=== PATIENT | male | born 1965 | race Caucasian/White ===

== ENCOUNTER 2019-10-21 10:00 | Day surgery (SDC) | payer OTHER ==
[~2019-10-21] VITALS: Ht 180.3 cm; Wt 97.5 kg
[2019-10-21] MEDS ORDERED: CO Q-1010 MG PO (10:08)
[2019-10-21] MEDS ORDERED: MULTIVITAMINS1 EAC7 PO (10:08)
[2019-10-21] MEDS ORDERED: VITAMIN D325 MC2 PO (10:09)
[2019-10-21] MEDS ORDERED: PRAVACHOL40 MG PO (10:09)
[2019-10-21] MEDS ORDERED: FISH OIL 1,2001 EACH PO (10:09)
[2019-10-21] MEDS ORDERED: ADULT LOW DOSE81 MG PO (10:09)
--- NOTE | 2019-10-21 13:05 | NUR ---
10/21/19 1305 Narda Wallace 1301 PATIENT ARRIVES TO PACU RESTING WITH EYES CLOSED. ANSWERS QUESTIONS APPROPRIATELY. RESP EVEN AND UNLABORED, ROOM AIR SATS >92%.
--- NOTE | 2019-10-22 11:46 | OR ---
[facility] [address] [place], [place] [address] Signed DATE OF OPERATION: 10/21/2019 SURGEON: Sparkle Miguel MD PREOPERATIVE DIAGNOSIS: Colon screening. POSTOPERATIVE DIAGNOSIS: Small polyp at 20 cm. PROCEDURE: Total colonoscopy to cecum with cold snare polypectomy x1. ANESTHESIA: Intravenous sedation, fentanyl 100 mcg, Versed 6 mg. INDICATION: This 53-year-old white man is a patient of ALAN Mckeon. He is here for screening colonoscopy. He has no symptoms of bleeding, diarrhea or constipation and no family history of colon cancer. He does have noninsulin dependent diabetes mellitus, which is managed by a very low carb diet. He understands the risks of bleeding, infection, and perforation related to colonoscopy and wished to proceed. FINDINGS: The prep was excellent except the cecum where there was some residual stool requiring irrigation. The colon was well prepped overall, however. There was a small polyp at 20 cm was excised with cold snare technique and additional cold morcellation polypectomy technique. There were no other findings of concern. DESCRIPTION OF PROCEDURE: The patient was brought to the endoscopy suite and placed in lateral decubitus position, given intravenous sedation to the point of slurred speech and nystagmus. Digital rectal examination was normal. An Olympus video colonoscope was passed in the rectum and manipulated throughout the colon noting a small polyp at 20 cm. The scope was passed beyond this ultimately to the cecum. There was some residual semi solid stool in the cecum which required irrigation. Visualization was good otherwise. The scope was withdrawn from that point and examination throughout showed no sign of abnormality until 20 cm from the anal verge where the polyp was once again identified. This was better position for excision. A Electronically Signed By: SPARKLE MIGUEL MD 10/22/19 1146 PATIENT NAME: NICO SIMON OPERATIVE REPORT DATE OF : 67 REPORT #: [id number] PHYSICIAN: SPARKLE MIGUEL MD PCP: ARLIN TOLBERT REPORT IS CONFIDENTIAL AND NOT TO BE RELEASED WITHOUT AUTHORIZATION [facility] [address] [place], [place] [address] Signed cold snare polypectomy technique was used to excise it completely. Additional polypectomy bites were taken with the forceps. Complete extirpation of the polyp was noted. The scope was then withdrawn. Retroflexed view undertaken showing no sign of abnormality otherwise. The scope was removed. The patient was taken to the recovery room in good condition. CONCLUDING DIAGNOSIS: Small polyp at 20 cm. PLAN: Recommend repeat colonoscopy in 5 years, sooner if clinically indicated. He will return to the ongoing care of ALAN Mckeon. MD ELMER Damico/TIERAL /[id number] cc: ALAN Mckeon Copies: ARLIN TOLBERT ~ Electronically Signed By: SPARKLE MIGUEL MD 10/22/19 1146 PATIENT NAME: NICO SIMON OPERATIVE REPORT DATE OF : 67 REPORT #: [id number] PHYSICIAN: SPARKLE MIGUEL MD PCP: ARLIN TOLBERT REPORT IS CONFIDENTIAL AND NOT TO BE RELEASED WITHOUT AUTHORIZATION
--- NOTE | 2019-10-22 15:25 | PATH ---
[facility] [address] [place], [place] [address] Signed SPECIMEN(S): A COLON POLYP AT 20 CM SPECIMEN SOURCE: A. COLON POLYP AT 20 CM CLINICAL HISTORY: Colonoscopy. Polyp in colon x 1. MICROSCOPIC DESCRIPTION: Histologic sections of all submitted blocks are examined by light microscopy. These findings, together with the gross examination, support the pathologic diagnosis. FINAL PATHOLOGIC DIAGNOSIS: Colon, polyp at 20 cm, polypectomy: - Polypoid colonic mucosa with no histopathologic abnormality. - Negative for dysplasia or malignancy. NAL:cml:C2NR GROSS DESCRIPTION: The specimen, labeled "JM, colon polyp at 20 cm," is received in formalin and consists of one rosales soft tissue fragment that measures 0.2 cm in greatest dimension. The specimen is entirely submitted in cassette (A1). JS (under the direct supervision of a pathologist) The Gross Description was prepared using a voice recognition system. The report was reviewed for accuracy; however, sound-alike word errors, addition and/or deletions may occur. If there is any question about this report, please contact Client Services. PERFORMING LABORATORY: The technical component was performed by [employer], [address] [place] [id number] (Head Of Data: Shaina Mejias MD; CLIA# [id number]). [facility] [address] [address] (CLIA# [id number]). Diagnostician: Rhina Vasquez MD Pathologist Electronically Signed 10/22/2019 PATIENT NAME: NICO SIMON PATHOLOGY DATE OF : 67 REPORT #: [id number] PHYSICIAN: BREANNE BRADFORD PCP: ARLIN TOLBERT REPORT IS CONFIDENTIAL AND NOT TO BE RELEASED WITHOUT AUTHORIZATION [address] [address] Signed Copies: ~ PATIENT NAME: NICO SIMON PATHOLOGY DATE OF : 67 REPORT #: [id number] PHYSICIAN: BREANNE PATHOLOGY PCP: ARLIN TOLBERT REPORT IS CONFIDENTIAL AND NOT TO BE RELEASED WITHOUT AUTHORIZATION
== END 2019-10-21 13:45 | disposition home or self-care (01) ==
LOC: OPS 10:00 → DS 10:00 → OPS 11:00
PROVIDERS: Surgery
PROC: 0DBE8ZZ Excision of Large Intestine, Via Natural or Artificial Opening Endoscopic (ICD-10-PCS; principal; 2019-10-21 11:00)
DX: Z12.11 Encounter for screening for malignant neoplasm of colon (principal); K63.5 Polyp of colon; I10 Essential (primary) hypertension; E11.9 Type 2 diabetes mellitus without complications; E78.5 Hyperlipidemia, unspecified; Z79.899 Other long term (current) drug therapy
CPT/HCPCS: 99153; G0500; J2250; J3010; J7121

== ENCOUNTER 2021-01-05 15:48 | Inpatient (IN) | payer OTHER ==
[~2021-01-05] VITALS: Ht 180.3 cm; Wt 93.2 kg
[~2021-01-05 15:48] MED LIST: ADULT LOW DOSE81 MG PO; CENTRAVITES 501 EACH PO; CO Q-1010 MG PO; FISH OIL 1,2001 EACH PO; PRAVACHOL40 MG PO; VITAMIN D325 MC2 PO
[2021-01-05] MEDS ORDERED: AMOX TR-K CLV1 EAC1 PO (16:20)
[2021-01-05] MEDS ORDERED: ATORVASTATIN CA80 MG PO (16:20)
[2021-01-05] MEDS ORDERED: LISINOPRIL40 MG PO (16:21)
--- NOTE | 2021-01-05 19:34 | NUR ---
PT ADMITED TO ROOM 108, FROM ED. A/O.
--- NOTE | 2021-01-05 19:46 | NUR ---
BLOOD SUGAR PRIOR TO MEAL, 130
--- NOTE | 2021-01-05 19:47 | NUR ---
1921 - arrived from ed via w/c.
--- NOTE | 2021-01-05 20:24 | NUR ---
ALERT AND ORIENTED, ON ROOM AIR, CLEAR LUNGS, EDEMA TO R FOOT AND LJ, EDGES MARKED. COOPERATIVE
--- NOTE | 2021-01-05 23:48 | NUR ---
AWAKES EASILY, NO C/O PAIN. R FOOT EDEMA, DECREASED, MARKED EARLIER, DISTAL BOTTOM OF FOOT OPEN AREA, WHITE SKIN, SCANT AMOUNTS OF SEROUS DRAINAGE. NO ODOR. PT COOPERATIVE
--- NOTE | 2021-01-06 02:21 | NUR ---
R leg elevated in pillows, decereaesd redness to calf area, decreaed edema to top of foot, but still hot to touch and red. elevated w pillows, no c/o adverse reaction to IV abx/ ivf infusing w/o problems. tolerating fluids well, no emesis, has voided QS
--- NOTE | 2021-01-06 04:13 | NUR ---
Pt admitted per cellulitis of R calve/foot, laceration of R distal plantar area. improved, less red and decreased edema noted. areas marked. On room air, lungs clear, abd soft. IVF infusing w/o problems, no c/o adverse reactin to IV abx infusion. tolerating liquids well, no emesis, has voided QS medium yellow urine using urinal and up to br, had a bm this shift. No c/o pain. uses call light, repositions self in bed. R leg elevated with pillows, no discharge noted from plantar laceration area.
--- NOTE | 2021-01-06 06:50 | NUR ---
RESTING, NO C/OPAIN, ON ROOM AIR, IVF INFUSING, R LEG ELEVATED IN PILLOWS, DECREAED REDNESS AND EDEMA. FLUIDS AND CALL LIGHT AT BEDSIDE
--- NOTE | 2021-01-06 07:40 | NUR ---
Pt lives in a 2 story home with his and two daughters. He uses the main floor only. 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 Pt would like to dc today and encouraged to wait as he is in need of IV antibiotics. Pt states understanding. Plans on dc to home when cleared medically. will transport. Denies other needs.
--- NOTE | 2021-01-06 08:30 | NUR ---
REPORT RECEIVED FROM NIGHT RN AND PT. CARE RESUMED. PT IS ALERT AND ORIENTED. HE DENIES PAIN OR NAUSEA. RT. FOOT REDNESS WITHIN OUTLINE AND +1 EDEMA PRESENT. NO DRAINAGE FROM PLANTAR WOUND. LUNGS CLEAR THROUGHOUT. IV SITE WNL AND FLUSHES WELL. DISCUSSED SAFETY, SHOWERING AND POC. PT LEFT RESTING WITH CALL LIGHT IN REACH.
--- NOTE | 2021-01-06 09:09 | NUR ---
MED REC COMPLETE
--- NOTE | 2021-01-06 12:00 | NUR ---
ROUNDING ON PT. HE DENIES PAIN AT THIS TIME. VITALS STABLE. HE ATE 100% OF HIS LUNCH. RIGHT FOOT REDNESS WITHIN OUTLINE AND UNCHANGED. PT. LEFT RESTING WITH CALL LIGHT IN REACH.
--- NOTE | 2021-01-06 12:08 | NUR ---
PT ALERT, ORIENTED AND FEELING BETTER. PT SHOWED ME OUTLINE OF REDNESS-HAS REDUCED WELL. HAD GOOD DISCUSSION, GAVE BLESSING AND ENCOURAGEMENT. WILL FOLLOW NEEDED
--- NOTE | 2021-01-06 12:26 | NUR ---
DR KAUFFMAN CALLED FOR CONSULT. HE WILL BE TO TO SEE PT THIS AFTERNOON.
--- NOTE | 2021-01-06 14:00 | NUR ---
PT. HAD A SHOWER. A SMALL AMOUNT OF SERISANGUINOUS DRAINAGE FROM RIGHT FOOT PLANTAR WOUND PRESENT. PT. DENIES PAIN. LEFT RESTING WITH CALL LIGHT IN REACH.
--- NOTE | 2021-01-06 19:50 | NUR ---
in to get vitals, iv alarming, rn informed, no further neds at this tome
--- NOTE | 2021-01-06 21:35 | NUR ---
RECEIVED REPORT ON PT FROM RADHA BELTRAN. PT IS RESTING WITH EYES CLOSED AT THIS TIME, CALL LIGHT IS CLOSE AND IV IS INFUSING FINE.
--- NOTE | 2021-01-06 22:45 | NUR ---
IN ROOM TO ASSESS PT AND ADMINISTER IV ABX. PT DENIES NEED FOR MELATONIN OR PAIN MEDICATION AT THIS TIME. PT REPORTS IMPROVEMENT IN R FOOT SWELLING/REDNESS. R FOOT IS ELEVATED ON PILLOW. REDNESS IS WITHIN OUTLINED AREAS AND ALLYVN ON DISTAL PLATAR FOOT IS CDI WITH A SMALL SPOT OF SHADOWING NOTED. PT REPORTS BILAT LE NEUROPATHY BUT DENIES PAIN. WARM BLANKET PROVIDED AND PT DENIES FURTHER NEEDS. CALL LIGHT IS CLOSE.
--- NOTE | 2021-01-07 00:15 | NUR ---
PT'S IV WAS BEEPING, IT IS NOW INFUSING FINE. EMPTIED URINAL AND PROVIDED FRESH ICEWATER. PT DENIES FURTHER NEEDS. CALL LIGHT IS CLOSE.
--- NOTE | 2021-01-07 01:51 | NUR ---
PT'S IV PUMP BEEPING, IT IS NOW INFUSING FINE. PT DENIES NEEDS AND CALL LIGHT IS CLOSE.
--- NOTE | 2021-01-07 02:43 | NUR ---
IV PUMP WAS BEEPING, IT IS NOW INFUSING FINE. URINAL EMPTIED. PT'S R FOOT IS ELEVATED ON PILLOW AND REDDNESS/SWELLING IS IMPROVING. PT DENIES PAIN. CALL LIGHT IS CLOSE AND PT DENIES NEEDS.
--- NOTE | 2021-01-07 04:50 | NUR ---
PT IS RESTING WITH EYES CLOSED, RR IS EVEN AND NONLABORED. CALL LIGHT IS CLOSE AND IV IS INFUSING FINE.
--- NOTE | 2021-01-07 06:56 | NUR ---
IN ROOM TO ADMINISTER IV ABX. DRESSING ON BOTTOM OF R FOOT HAS LARGER AMOUNT OF DRAINAGE THIS AM THAT APPEARS SEROUS. PT DENIES PAIN AND DENIES FURTHER NEEDS AT THIS TIME. CALL LIGHT IS CLOSE.
--- NOTE | 2021-01-07 09:00 | NUR ---
REPORT RECEIVED FROM NIGHT RN AND PT. CARE RESUMED. PT. IS ALERT, ORIENTED. HE DENIES PAIN AT THIS TIME. RT. FOOT WAS REDRESSED BY DR. KAUFFMAN THIS MORNING. ALLEVYN IS CDI AND REDNESS IS IMPROVED AND WITHIN OUTLINE. EDEMA IS TRACE IN RLE. IV ABX INFUSING. DISCUSSED DISCHARGE AND MEDS. LEFT RESTING WITH CALL LIGHT IN REACH.
--- NOTE | 2021-01-07 09:45 | NUR ---
Spoke with Jorden. He saw Dr. Gómez this am and states he will go home today. Denies any needs, will transport him.
--- NOTE | 2021-01-07 11:47 | NUR ---
ALL DISCHARGE INSTRUCTIONS REVIEWED AND QUESTIONS ANSWERED. PT. LEFT WITHG ALL BELONGINGS VIA WHEELCHAIR WITH REWORK OPERATOR.
== END 2021-01-07 11:50 | disposition home or self-care (01) | DRG 623 ==
LOC: ED 15:48 → MS 18:47
PROVIDERS: ADMIT Internal Medicine; ATTEND Internal Medicine
PROC: 0JBQ0ZZ Excision of Right Foot Subcutaneous Tissue and Fascia, Open Approach (ICD-10-PCS; principal; 2021-01-06)
DX: E11.628 Type 2 diabetes mellitus with other skin complications (principal); L03.115 Cellulitis of right lower limb; E11.40 Type 2 diabetes mellitus with diabetic neuropathy, unspecified; E78.5 Hyperlipidemia, unspecified; I10 Essential (primary) hypertension; E78.00 Pure hypercholesterolemia, unspecified; Z98.890 Other specified postprocedural states; Z79.899 Other long term (current) drug therapy; Z79.82 Long term (current) use of aspirin
CPT/HCPCS: 80048; 80053; 81001; 83605; 83735; 85025; 87040; 96365; 99284-25; C9803; J0692; J7030; U0003

== ENCOUNTER 2022-12-03 09:02 | Inpatient (IN) | payer OTHER ==
[~2022-12-03] VITALS: Ht 180.3 cm; Wt 94.3 kg
[~2022-12-03 09:02] MED LIST changes: +AMOX TR-K CLV1 EAC1 PO; +ATORVASTATIN CA80 MG PO; +ZESTRIL20 MG PO
[2022-12-03 10:22] LABS: BASOPHILS 0.5 % (0-2); EOSINOPHILS 0.3 % (0-6); HEMOGLOBIN 14.7 g/dL (12.0-18.0); LYMPHOCYTES 10.5 % (24-44); MCH 28.9 (27-36); MCHC 33.5 g/dl (30-36); MCV 86.2 fl (81-99); MONOCYTES 10.8 % (0-12); NEUTROPHILS 77.9 % (39-80); PLATELET COUNT 189 K/uL (140-440); RBC 5.11 M/ul (4.3-5.7); RDW 13.1 (10.5-15.0)
[2022-12-03 10:54] LABS: ALBUMIN 3.4 g/dL (3.4-5.0); ALBUMIN/GLOBULIN RATIO 0.85 (1.1-2.4); ANION GAP 12.6 (7-21); BILIRUBIN, TOTAL 1.4 ng/dL (0.2-1.0); BUN/CREATININE RATIO 11.76 (6.0-28.6); CALCIUM 9.6 mg/dL (8.5-10.1); CREATININE, SERUM 1.36 mg/dL (0.70-1.30); POTASSIUM 4.6 mmol/L (3.5-5.1); PROTEIN, TOTAL 7.4 g/dL (6.4-8.2)
[2022-12-03 12:31] LABS: ERYTHROCYTE SEDIMENTATION RATE 33
--- NOTE | 2022-12-03 13:43 | NUR ---
PT ADMITTED TO ROOM 1115 VIA WHEELCHAIR. AMBULATES SAFELY AND INDEPENDENTLY FROM WC TO BED. VSS. DISCUSSED PLAN OF CARE AND MEDICATIONS. PT ORIENTED TO ROOM AND CALL LIGHT, VERBALIZED UNDERSTANDING. PT LEFT GREAT TOE REDNESS OUTLINED. PT DENIES FEELING PAIN IN LOWER EXTREMITIES. IV PATENT. PT DENIES NEEDS AT THIS TIME, CALL LIGHT IN REACH.
[2022-12-03 13:53] VITALS: BP 113/69
--- NOTE | 2022-12-03 15:41 | NUR ---
MED REC COMPLETE
[2022-12-03 18:29] VITALS: BP 119/68
--- NOTE | 2022-12-03 19:40 | NUR ---
REPORT RECEIVED FROM DAY SHIFT RN. PT LYING IN BED ALERT AND ORIENTED. DENIES NEEDS. WHITE BOARD UPDATED. CALL LIGHT IN REACH.
[2022-12-03 20:21] VITALS: BP 122/72
--- NOTE | 2022-12-03 20:58 | NUR ---
EVENING ASSESSMENT COMPLETE. SCHEDULED MEDS ADMIN PER EMAR. PT REPORTS HEADACHE PAIN AND TEMP 99.8. NIO TYLENOL ADMIN. VS AND I&O OBTAINED. IV ABX INFUSING PER ORDER. LEFT GREAT TOE WITH ULCER PRESENT. NO DRAINAGE. REDNESS REMAINS WITHIN OUTLINE. PT DENIES QUESTIONS OR CONCERNS. CALL LIGTH IN REACH.
--- NOTE | 2022-12-03 23:25 | NUR ---
PT RESTING IN BED WITH EYES CLOSED. RESPIRATIONS EVEN. CALL LIGHT IN REACH.
[2022-12-04 01:52] VITALS: BP 121/78
--- NOTE | 2022-12-04 02:08 | NUR ---
PT RESTING WITH EYES CLOSED. AWAKENS EASILY. VS AND I&O OBTAINED. ASSESSMENT UNCHANGED. PT DENIES PAIN. IV ABX INFUSING PER ORDER. PT DENIES NEEDS. CALL LIGHT IN REACH.
[2022-12-04 05:17] VITALS: BP 127/79
--- NOTE | 2022-12-04 05:22 | NUR ---
LAB IN ROOM FOR MORNING DRAW. VS AND I&O OBTAINED. IV ABX COMPLETE. PT DENIES NEEDS. CALL LIGHT IN REACH.
[2022-12-04 05:23] LABS: BASOPHILS 0.3 % (0-2); EOSINOPHILS 1.5 % (0-6); HEMATOCRIT 39.8 % (35.0-50.0); HEMOGLOBIN 13.4 g/dL (12.0-18.0); LYMPHOCYTES 22.1 % (24-44); MCH 28.5 (27-36); MCHC 33.7 g/dl (30-36); MCV 84.5 fl (81-99); MONOCYTES 11.3 % (0-12); NEUTROPHILS 64.8 % (39-80); PLATELET COUNT 183 K/uL (140-440); RBC 4.71 M/ul (4.3-5.7)
[2022-12-04 05:34] LABS: BUN/CREATININE RATIO 12.9 (6.0-28.6); CALCIUM 8.8 mg/dL (8.5-10.1); CREATININE, SERUM 0.93 mg/dL (0.70-1.30)
--- NOTE | 2022-12-04 06:10 | NUR ---
PT OFF FLOOR FOR MRI.
--- NOTE | 2022-12-04 06:59 | NUR ---
PT BACK FROM MRI. IVF RESUMED. NO NEEDS AT THIS TIME.
[2022-12-04 09:45] VITALS: BP 123/74
--- NOTE | 2022-12-04 09:47 | NUR ---
RECEIVED PT REPORT FROM DEVIN GRAFF AT APPROXIMATELY 0715 HOURS.
--- NOTE | 2022-12-04 10:38 | NUR ---
CALL TO DR. KAUFFMAN'S OFFICE FOR CONSULTATION ON PATIENT. FACE SHEET FAXED TO OFFICE.
--- NOTE | 2022-12-04 10:38 | NUR ---
DR. CHOPRA IN WITH PT TO DISCUSS RESULTS OF MRI (1023 HOURS).
--- NOTE | 2022-12-04 10:47 | NUR ---
IN TO VISIT PATIENT, PATIENT AWAKE WATCHING MOVIE ON HIS PHONE. PATIENT STATES HE LIVES AT HOME WITH HIS . HE DOES LIVE IN A 2 STORY, BUT HE CURRENTLY LIVES IN THE LOWER LEVEL. PATIENT DAUGHTERS ALSO LIVE IN THE HOME AND WILL BE ABLE TO ASSIST AT DISCHARGE. PATIENT DOES NOT REQUIRE ANY DME. 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 DEMOGRAPHIC INFORMATION VERIFIED. PATIENT STATES HE HAS NO FINANCIAL NEEDS, BUT IS CONCERNED THAT HE WILL HAVE A LARGE HOSPITAL BILL. ADVISED WE COULD REQUEST A VISIT FROM MICHELLE IN PATIENT ACCOUNTS TO SEE IF HE WOULD QUALIFY FOR SECONDARY COVERAGE. PATIENT WOULD LIKE TO HOLD OFF ON THIS FOR NOW HE IS UNSURE WHAT HIS MEDICAL NEEDS WILL BE AT THIS TIME. PATIENT STATES PODIATRY IS TO SEE HIM IN THE AM. ADVISED THAT CASE MANAGEMENT WILL RETURN TO CHECK WITH HIM DURING HIS STAY.
--- NOTE | 2022-12-04 11:51 | NUR ---
EXERCISED MINISTRY OF PRESENCE PT TALKED OF DIAGNOSIS AND PLAN HE UNDERSTANDS IT. CONSENTED TO PRAYER. PRAYED FOR CLARITY OF DECISIONS AND EVANGELICAL OF HEALTH.
--- NOTE | 2022-12-04 12:21 | NUR ---
PT UP IN CHAIR, RESPONDING TO CALL LIGHT FOR IV PUMP BEEPING. NS FLUSH COMPLETE. PLUM SET CHANGED BACK TO LR AND RATE CONTINUED AT 125ML/HR PER ORDERS. PT DENIES ANY NEEDS AT THIS TIME.
[2022-12-04 14:16] VITALS: BP 113/67
--- NOTE | 2022-12-04 16:37 | NUR ---
IN FOR HOURLY ROUND AND TO ANSWER CALL LIGHT. PT STATES HE DOESN'T THINK HIS IV IS RUNNING PROPERLY BECAUSE THERE ARE BUBBLES THAT HAVE STOPPED MOVING. IV PUMP RUNNING ZOSYN WITHOUT ALARMING, PUMP PLACED IN STANDBY AND IV FLUSHED WITH 10ML NS WITHOUT RESISTANCE AND WITH GOOD RETURN. ADVISED PT THAT THE IV PUMP WILL ALARM IF IT IS RUNNING AND FLUID IS NOT ENTERING THE IV CATHETER, AND ALSO REINFORCED EDUCATION ON THINGS TO USE THE CALL LIGHT FOR IN REGARDS TO IV INFILTRATION, IV LEAKING, EXTRAVASATION, REDNESS, SIGNS OF INFECTION, ETC. PT VERBALIZED UNDERSTANDING. CALL LIGHT IN REACH. DENIES FURTHER NEEDS AT THIS TIME.
--- NOTE | 2022-12-04 18:07 | NUR ---
PT'S INDUSTRIAL ILLUMINATING ENGINEER, DR. KAUFFMAN IN WITH PT.
--- NOTE | 2022-12-04 18:14 | NUR ---
DR BRICE IN TO CONSULT ON PT. PLANS GOING FORWARD DISCUSSED ALL QUESTIONS ANSWERED
--- NOTE | 2022-12-04 18:29 | NUR ---
PT HAS BEEN UP IN CHAIR FOR MOST OF THE DAY. FAMILY HAS VISITED A COUPLE OF TIMES. PT HAS NO C/O PAIN HE HAS NEUROPATHY IN HIS FEET. ORAL INTAKE HAS BEEN ADEQUATE, VOIDING QUANTITY SUFFICIENT, AMBULATES TO BATHROOM AND UP TO CHAIR UNASSISTED. USES CALL LIGHT APPROPRIATELY. DR. KAUFFMAN CONSULTED WITH PT FOR POSSIBLE AMPUTATION OR CONTINUING ABX AT HOME VS. IV IN THE HOSPITAL. PT IV SITE PATENT, GOOD RETURN, LR RUNNING AT 125ML/HR PER EMAR ORDERS. PT USES CALL LIGHT APPROPRIATELY. PLEASANT AFFECT.
--- NOTE | 2022-12-04 18:41 | NUR ---
DR. KAUFFMAN APPLIED IODOSORB, BANDAGE, AND GAUZE TO LEFT GREAT TOE AFTER REMOVING TISSUE, SECURED WITH KERLEX AND COBAN.
[2022-12-04 18:51] VITALS: BP 148/90
--- NOTE | 2022-12-04 19:44 | NUR ---
REPORT RECEIVED FROM DAY SHIFT RN. PT UP TO SHOWER INDEPENDENTLY. DRESSING ON LEFT FOOT WET AFTER SHOWER. DR. KAUFFMAN UPDATED. TELEPHONE ORDERS RECEIVED TO REPLACE DRESSING. WHITE BOARD UPDATED. CALL LIGHT IN REACH.
[2022-12-04 20:04] VITALS: BP 111/95
--- NOTE | 2022-12-04 20:45 | NUR ---
EVENING ASSESSMENT COMPLETE. SCHEDULED MEDS ADMIN PER EMAR. PT DENIES PAIN OR NAUSEA. DRESSING TO LEFT FOOT CHANGED PER ORDER. LLE ELEVATED ON PILLOW. IV ABX INFUSING PER ORDER. PT DENIES QUESTIONS OR CONCERNS. CALL LIGHT IN REACH.
--- NOTE | 2022-12-04 23:34 | NUR ---
PT RESTING IN BED WITH EYES CLOSED. RESPIRATIONS EVEN. CALL LIGHT IN REACH.
--- NOTE | 2022-12-04 23:50 | NUR ---
IV PUMP ALARMING. ISSUE RESOLVED. PT UP TO BR TO VOID 600 ML CLEAR YELLOW URINE. BACK TO BED, ELIOT WELL. DENIES NEEDS.
--- NOTE | 2022-12-05 02:04 | NUR ---
IV ABX INFUSING WNL. ASSESSMENT UNCHANGED. PT DENIES PAIN OR NAUSEA. NO NEEDS AT THIS TIME.
--- NOTE | 2022-12-05 04:01 | NUR ---
PT RESTING IN BED WITH EYES CLOSED. RESPIRATIONS EVEN. CALL LIGHT IN REACH.
[2022-12-05 05:10] VITALS: BP 139/86
--- NOTE | 2022-12-05 05:46 | NUR ---
IV PUMP ALARMING. ISSUE RESOLVED. VS AND I&O OBTAINED. PT DENIES PAIN. LLE DRESSING CDI. LLE ELEVATED ON PILLOW. PT DENIES NEEDS. CALL LIGHT IN REACH.
--- NOTE | 2022-12-05 07:44 | NUR ---
PT REPORT RECEIVED FROM DEVIN GRAFF AT 0715 HOURS. CURRENTLY, PT UP IN CHAIR IN ROOM, DR. KAUFFMAN AT BEDSIDE FOR DRESSING CHANGE AFTER REVIEWING PT XRAY IMAGES. PT REPORTS NAUSEA, DIZZINESS AND NIGHT SWEATS. LR RUNNING AT 125ML/HR
[2022-12-05 09:41] VITALS: BP 128/75
[2022-12-05] MEDS ORDERED: CIPROFLOXACIN500 MG PO (10:38)
[2022-12-05] MEDS ORDERED: DOXYCYCLINE HY100 MG PO (10:39)
== END 2022-12-05 11:58 | disposition home or self-care (01) | DRG 603 ==
LOC: ED 09:02 → MS 12:47
PROVIDERS: Student in an Organized Health Care Education/Training Program; ADMIT Internal Medicine; ATTEND Family Medicine
DX: L03.032 Cellulitis of left toe (principal); M86.172 Other acute osteomyelitis, left ankle and foot; E78.00 Pure hypercholesterolemia, unspecified; E11.65 Type 2 diabetes mellitus with hyperglycemia; E11.69 Type 2 diabetes mellitus with other specified complication; I10 Essential (primary) hypertension; R79.82 Elevated C-reactive protein (CRP); E11.40 Type 2 diabetes mellitus with diabetic neuropathy, unspecified; Z98.890 Other specified postprocedural states; Z79.82 Long term (current) use of aspirin; Z79.899 Other long term (current) drug therapy
CPT/HCPCS: 36415; 73660; 73723; 80048; 80053; 83605; 85025; 85651; 86140; A9270; A9577; J0690; J0878; J1815; J2543; J7030; J7121

== ENCOUNTER 2023-01-01 03:26 | Emergency (ER) | payer OTHER ==
[~2023-01-01] VITALS: Ht 180.3 cm; Wt 95.2 kg
[~2023-01-01 03:26] MED LIST changes: +CIPROFLOXACIN500 MG PO; +DOXYCYCLINE HY100 MG PO
--- OUTSIDE RECORDS SUMMARY | 2023-01-01 03:34 | XMS ---
PreManage Notification: NICO SIMON Security Pediatric Pathologist Events No recent Security Events currently on file CRITERIA MET - [facility] - 2 Visits in 30 Days CARE PROVIDERS There are no care providers on record at this time. Renuka has no Care Guidelines for this patient. [facility] NOTE: Visits indicate total known visits. 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
[2023-01-01 03:53] LABS: BASOPHILS 0.5 % (0-2); EOSINOPHILS 0.6 % (0-6); HEMATOCRIT 44.1 % (35.0-50.0); HEMOGLOBIN 14.6 g/dL (12.0-18.0); LYMPHOCYTES 16.1 % (24-44); MCH 27.8 (27-36); MCHC 33.1 g/dl (30-36); MONOCYTES 10.7 % (0-12); NEUTROPHILS 72.1 % (39-80); PLATELET COUNT 189 K/uL (140-440); RBC 5.25 M/ul (4.3-5.7); RDW 13.7 (10.5-15.0)
[2023-01-01 03:57] LABS: INR 1.01 (0.80-1.30); PROTIME 12.9 Sec (11.2-14.2)
[2023-01-01 04:05] LABS: ALBUMIN 3.7 g/dL (3.4-5.0); ALBUMIN/GLOBULIN RATIO 0.95 (1.1-2.4); ANION GAP 18.3 (7-21); BILIRUBIN, TOTAL 1.7 ng/dL (0.2-1.0); BUN/CREATININE RATIO 18.69 (6.0-28.6); CREATININE, SERUM 1.07 mg/dL (0.70-1.30); MAGNESIUM 1.6 mg/dL (1.8-2.4); POTASSIUM 4.3 mmol/L (3.5-5.1); PROTEIN, TOTAL 7.6 g/dL (6.4-8.2)
[2023-01-01 04:31] LABS: INFLUENZA B NAA NEGATIVE (NEGATIVE); RESPIRATORY SYNCYTIAL VIR NAA NEGATIVE (NEGATIVE)
[2023-01-01] MEDS ORDERED: CYCLOBENZAPRINE10 MG PO (04:56)
[2023-01-01 05:07] VITALS: BP 116/72
--- NOTE | 2023-01-01 17:40 | EKG ---
[facility] [address] [facility] [place] [address] Signed Normal sinus rhythm Minimal voltage criteria for LVH, may be normal variant ( R in aVL ) Borderline ECG No previous ECGs available Confirmed by BRITTNEY BARDALES MD ([id number]) on 01/01/2023 5:39:54 PM Electronically Signed By: BRITTNEY BARDALES 01/01/23 1740 PATIENT NAME: ALFREDNICO Electrocardiogram DATE OF : 67 PHYSICIAN: BRITTNEY BARDALES REPORT #: [id number] REPORT IS CONFIDENTIAL AND NOT TO BE RELEASED WITHOUT AUTHORIZATION
== END 2023-01-01 05:00 | disposition home or self-care (01) ==
LOC: ED 03:26
PROVIDERS: Family Medicine
DX: R07.89 Other chest pain (principal); E11.65 Type 2 diabetes mellitus with hyperglycemia; I10 Essential (primary) hypertension; E78.00 Pure hypercholesterolemia, unspecified; Z79.82 Long term (current) use of aspirin
CPT/HCPCS: 36415; 71045; 80053; 83735; 84484; 85025; 85610; 87502; 93005; 93010; C9803; U0002

== ENCOUNTER 2023-01-03 17:35 | Emergency (ER) | payer OTHER ==
[~2023-01-03] VITALS: Ht 180.3 cm; Wt 95.2 kg
[~2023-01-03 17:35] MED LIST changes: +CYCLOBENZAPRINE10 MG PO
--- OUTSIDE RECORDS SUMMARY | 2023-01-03 17:43 | XMS ---
PreManage Notification: NICO SIMON Security Cosmetology Instructor Events No recent Security Events currently on file CRITERIA MET - [facility] - 2 Visits in 30 Days CARE PROVIDERS There are no care providers on record at this time. Renuka has no Care Guidelines for this patient. Stephanie VISIT COUNT (12 MO.) 3 [facility] [place] [facility]. TOTAL 3 NOTE: Visits indicate total known visits. ED/C VISIT TRACKING (12 MO.) 01/03/2023 17:[address] [facility] [place] TYPE: Emergency COMPLAINT: - CHEST PAIN 01/01/2023 03:26 [facility] [place] TYPE: Emergency COMPLAINT: - COLD SYMPTOMS DIAGNOSES: - Essential (primary) hypertension - custodial (current) use of aspirin - Other chest pain - Pure hypercholesterolemia, unspecified - Type 2 diabetes mellitus with hyperglycemia 12/03/2022 09:02 [facility] [place] TYPE: Emergency COMPLAINT: - FOOT PAIN INPATIENT VISIT TRACKING (12 MO.) 12/03/2022 12:47 [facility] [place] TYPE: Medical Surgical COMPLAINT: - CELLULITIS DIAGNOSES: - Cellulitis of left lower limb - Cellulitis of left toe - Elevated C-reactive protein (CRP) - Essential (primary) hypertension - custodial (current) use of aspirin - Other acute osteomyelitis, left ankle and foot - Other penitentiary (current) drug therapy - Other specified postprocedural states - Pure hypercholesterolemia, unspecified - Type 2 diabetes mellitus with diabetic neuropathy, unspecified - Type 2 diabetes mellitus with hyperglycemia - Type 2 diabetes mellitus with other specified complication [email or web address]
[2023-01-03 18:27] LABS: HEMATOCRIT 40.4 % (35.0-50.0); HEMOGLOBIN 12.8 g/dL (12.0-18.0); MCH 27.4 (27-36); MCHC 31.7 g/dl (30-36); MCV 86.4 fl (81-99); PLATELET COUNT 210 K/uL (140-440); RBC 4.68 M/ul (4.3-5.7); RDW 14.1 (10.5-15.0)
[2023-01-03 18:34] VITALS: BP 110/68
[2023-01-03 18:46] LABS: ALBUMIN/GLOBULIN RATIO 0.63 (1.1-2.4); BILIRUBIN, TOTAL 1.6 ng/dL (0.2-1.0); BUN/CREATININE RATIO 23.28 (6.0-28.6); CALCIUM 9.9 mg/dL (8.5-10.1); CREATININE, SERUM 1.89 mg/dL (0.70-1.30); PROTEIN, TOTAL 7.8 g/dL (6.4-8.2)
[2023-01-03 19:03] LABS: BANDS, MANUAL DIFF 2; LYMPHOCYTES, MANUAL DIFF 10; MONOCYTES, MANUAL DIFF 10; NEUTROPHILS, MANUAL DIFF 78
--- NOTE | 2023-01-04 12:40 | EKG ---
[facility] [address] [place] [address] Signed Poor data quality, interpretation may be adversely affected Normal sinus rhythm Low voltage QRS ST elevation, consider inferolateral injury or acute infarct ACUTE [place] / STEMI Abnormal ECG When compared with ECG of 01-JAN-2023 03:32, QRS voltage has decreased ST elevation now present in Anterior leads Confirmed by MARY CHOPRA MD ([id number]) on 01/04/2023 12:39:50 PM Electronically Signed By: MARY CHOPRA 01/04/23 1240 PATIENT NAME: NICO SIMON Electrocardiogram DATE OF : 67 PHYSICIAN: MARY CHOPRA REPORT #: [id number] REPORT IS CONFIDENTIAL AND NOT TO BE RELEASED WITHOUT AUTHORIZATION
== END 2023-01-03 18:04 | disposition home or self-care (01) ==
LOC: ED 17:35
PROVIDERS: Emergency Medicine
DX: I21.3 ST elevation (STEMI) myocardial infarction of unspecified site (principal); I10 Essential (primary) hypertension; E78.00 Pure hypercholesterolemia, unspecified; E11.9 Type 2 diabetes mellitus without complications; Z79.82 Long term (current) use of aspirin; Z79.899 Other long term (current) drug therapy; Z20.822 Contact with and (suspected) exposure to COVID-19
CPT/HCPCS: 36415; 71045; 80053; 84484; 85025; 93005; 93010; 96374; 99285-25; A9270; C9803; J1644; U0002